=== PATIENT | female | born 1990 | race African-American/Black ===

== ENCOUNTER 2017-12-22 09:24 | Emergency (ER) | payer OTHER ==
[2017-12-22 09:30] VITALS: BP 129/61; PULSE 98; TEMP 98.2; BMI 78.9
[2017-12-22 10:01] LABS: HCG,QUALITATIVE URINE NEGATIVE
[2017-12-22 10:02] LABS: URINE APPEARANCE SLCLOUDY; URINE BILIRUBIN NEGATIVE (NEGATIVE); URINE BLOOD 3+ (NEGATIVE); URINE COLOR YELLOW; URINE GLUCOSE (UA) NEGATIVE (NEGATIVE); URINE KETONE NEGATIVE (NEGATIVE); URINE NITRITE NEGATIVE (NEGATIVE); URINE PROTEIN NEGATIVE (NEGATIVE)
[2017-12-22 10:12] LABS: URINE LEUK ESTERASE 3+ (NEGATIVE)
[2017-12-22 10:15] LABS: EPI CELLS RARE /HPF (FEW); URINE MUCUS FEW
--- NOTE | 2017-12-22 11:55 | PDOC ---
History of Present Illness - General Chief Complaint: Vaginal Sxs Stated Complaint: Wants STD testing Time Seen by Provider: 12/22/17 10:48 History Source: Patient Exam Limitations: No Limitations - History of Present Illness Initial Comments: 12/22/17 11:46 Patient is a 27-year-old female, denies any significant medical history was seen in [facility]OD BANK MANA[facility] last week for missed period, has an IUD was tested for gonorrhea Chlamydia and HIV all were negative has been feeling ill, no fever, chest and abdominal upset with no pain. Had vaginal spotting for the last 3 days, but no full flow. Is due for her period now. Past Medical History: [Denies]. Allergies: Crab, Kiwi and shrimp Medications: [None] Family History: Non-contributory Social History: Denies smoking, alcohol use, or IVDU Review of Systems GENERAL/CONSTITUTIONAL: [No fever or chills. No weakness. No weight change.] HEAD, EYES, EARS, NOSE AND THROAT: [No change in vision. No ear pain or discharge. No sore throat. ] CARDIOVASCULAR: [No chest pain or shortness of breath.] RESPIRATORY: [No cough, wheezing, or hemoptysis.] GASTROINTESTINAL: [No nausea, vomiting, diarrhea or constipation. No rectal bleeding.] GENITOURINARY: [No dysuria, frequency, or change in urination. Vaginal discharge and odor. Hernandez discharge. ] MUSCULOSKELETAL: [No joint or muscle swelling or pain. No neck or back pain.] SKIN AND BREASTS: [No rash or easy bruising.] NEUROLOGIC: [No headache, vertigo, loss of consciousness, or loss of sensation.] ENDOCRINE: [No increased thirst. No abnormal weight change.] HEMATOLOGIC/LYMPHATIC: [No anemia, easy bleeding, or history of blood clots.] ALLERGIC/IMMUNOLOGIC: [No hives or skin allergy. No latex allergy.] Physical Exam: GENERAL: [The patient is awake, alert, and fully oriented, in no acute distress. ] EYES: [Pupils equal, round and reactive to light, extraocular movements intact, sclera anicteric, conjunctiva clear.] ENT: [Ears normal, nares patent, oropharynx clear without exudates. Moist mucous membranes. No uvula deviation] NECK: [Normal range of motion, supple without lymphadenopathy, JVD, or masses.] LUNGS: [Breath sounds equal, clear to auscultation bilaterally. No wheezes, and no crackles.] HEART: [Regular rate and rhythm, normal S1 and S2 without murmur, rub or gallop. ] ABDOMEN: [Soft, nontender, normoactive bowel sounds. No guarding, no rebound. No masses. No bruising or abrasions] GENITALIA: Hernandez discharge, foul odor. Patient is uncomfortable with full examination unable to fully visualize cervical os MUSCULOSKELETAL: [Normal range of motion, no edema. No clubbing or cyanosis. No cords, erythema, or tenderness. No CVA Tenderness with fist palpation] NEUROLOGICAL: [Cranial nerves II through XII grossly intact. Normal speech, normal gait.] SKIN: [Warm, Dry, normal turgor, no rashes or lesions noted.] 12/22/17 12:28 Past History - Past Medical History Allergies/Adverse Reactions: Allergies Allergy/AdvReac Type Severity Reaction Status Date / Time crab AdvReac Itching Verified 12/22/17 09:30 kiwi AdvReac Itching Verified 12/22/17 09:30 shrimp AdvReac Itching Verified 12/22/17 09:30 Home Medications: Ambulatory Orders Nitrofurantoin Monohyd/M-Cryst [Macrobid -] 100 mg PO BID #14 capsule 12/22/17 metroNIDAZOLE 0.75% VAG. GEL [Metrogel 0.75% *Vaginal Gel* -] 1 applic VG HS #1 tube 12/22/17 Asthma: No Cancer: No Cardiac Disorders: No COPD: No Diabetes: No HTN: No Seizures: No Thyroid Disease: No - Reproductive History (#): 5 Para: 4 Therapeutic (s) & number: No - Suicide/Smoking/Psychosocial Hx Smoking History: Never smoked Have you smoked in the past 12 months: No Information on smoking cessation initiated: No Hx Alcohol Use: No Drug/Substance Use Hx: No Substance Use Type: None Hx Substance Use Treatment: No *Physical Exam - Vital Signs Last Vital Signs Temp Pulse Resp BP Pulse Ox 98.2 F 98 H 18 129/61 100 12/22/17 09:27 12/22/17 09:27 12/22/17 09:27 12/22/17 09:27 12/22/17 09:27 ED Treatment Course - ADDITIONAL ORDERS Additional order review: Laboratory Results 12/22/17 09:50 Urine Color Yellow Urine Appearance Slcloudy Urine pH 6.0 Ur Specific [place] 1.020 Urine Protein Negative Urine Glucose (UA) Negative Urine Ketones Negative Urine Blood 3+ H Urine Nitrite Negative Urine Bilirubin Negative Urine Urobilinogen 2.0 H Ur Leukocyte Esterase 3+ H D Urine WBC (Auto) 62 Urine RBC (Auto) 33 Ur Epithelial Cells Rare Urine Mucus Few Urine HCG, Qual Negative Medical Decision Making - Medical Decision Making 12/22/17 11:50 A/P: Patient here complaining of generalized "not feeling well" no fever, is concerned she has foul odor with urine, increase in urination, has an IUD in and has a history of urinary tract infections because of it. The same. Urinalysis, urine sent. Urine is negative Laboratory Results - last 24 hr 12/22/17 09:50 Urine Color Yellow Urine Appearance Slcloudy Urine pH 6.0 Ur Specific [place] 1.020 Urine Protein Negative Urine Glucose (UA) Negative Urine Ketones Negative Urine Blood 3+ H Urine Nitrite Negative Urine Bilirubin Negative Urine Urobilinogen 2.0 H Ur Leukocyte Esterase 3+ H D Urine WBC (Auto) 62 Urine RBC (Auto) 33 Ur Epithelial Cells Rare Urine Mucus Few Urine HCG, Qual Negative I'm going to discharge patient on Macrobid, vaginal examination performed and highly suspicious for BV vaginal culture sent We'll also discharge patient on Metrogel. I discussed the physical exam findings, ancillary test results and final diagnoses with the patient. I answered all of the patient's questions. The patient was satisfied with the care received and felt comfortable with the discharge plan and treatment plan. The patient will call to arrange follow-up and will return to the Emergency Department with any new, persistent or worsening symptoms. 12/22/17 12:29 *DC/Admit/Observation/Transfer Diagnosis at time of Disposition: Vaginal discharge UTI (urinary tract infection) Qualifiers: Urinary tract infection type: site unspecified Hematuria presence: without hematuria Qualified Code(s): N39.0 - Urinary tract infection, site not specified - Discharge Dispostion Disposition: HOME Condition at time of disposition: Stable Admit: No - Prescriptions Prescriptions: metroNIDAZOLE 0.75% VAG. GEL [Metrogel 0.75% *Vaginal Gel* -] 1 applic VG HS #1 tube Nitrofurantoin Monohyd/M-Cryst [Macrobid -] 100 mg PO BID #14 capsule - Referrals Referrals: [facility] [Provider Group] - Patient Instructions Additional Instructions: Please call [phone] in one week for results of culture and GC chlamydia testing Increase fluid intake, make sure to take probiotic or eat yogurt Refrain from sexual activity for at least 2 weeks Please follow-up with her BLOOD BANK MANAGER in 1 week if symptoms persist if any increased pain, fever, or any other concerns return to ER - Post Discharge Activity Forms/Work/School Notes: Back to Work
== END 2017-12-22 12:34 | disposition home or self-care (01) ==
LOC: JERFT 09:24
DX: N39.0 Urinary tract infection, site not specified (principal); Z97.5 Presence of (intrauterine) contraceptive device
CPT/HCPCS: 81003; 81015; 84703; 87070; 87086; 87205; 99281-25

== ENCOUNTER 2019-06-08 07:30 | Inpatient (IN) | payer OTHER ==
[2019-06-08 10:12] LABS: BASO % 0.4 % (0-2.0); EOS % 0.1 % (0-4.5); HEMATOCRIT 35.9 % (32.4-45.2); HEMOGLOBIN 11.9 GM/dL (10.7-15.3); LYMPH % 16.1 % (8-40); MCH 28.5 pg (25.7-33.7); MCHC 33.3 g/dl (32.0-36.0); MEAN CELL VOLUME 85.5 fl (80-96); MEAN PLT VOLUME 9.4 fl (7.5-11.1); MONO % 8.4 % (3.8-10.2); PLATELET COUNT 239 K/MM3 (134-434); RBC 4.19 M/mm3 (3.60-5.2); RDW 14.6 % (11.6-15.6); WHITE BLOOD COUNT 10.4 K/mm3 (4.0-10.0)
[2019-06-08 10:35] LABS: ALBUMIN 2.5 g/dl (3.4-5.0); BILIRUBIN,TOTAL 0.4 mg/dL (0.2-1); BLOOD UREA NITROGEN 7.5 mg/dL (7-18); CALCIUM 8.8 mg/dL (8.5-10.1); CREATININE 0.5 mg/dL (0.55-1.3); POTASSIUM 4.1 mmol/L (3.5-5.1); TOT PROT 6.7 g/dl (6.4-8.2); URIC ACID 4.1 mg/dL (2.6-7.2)
[2019-06-08 11:39] LABS: RATIO URIN PROTEIN/URIN CREAT 0.63 MG/DL
[2019-06-08 11:42] LABS: EPI CELLS 2.1 /HPF (0-5/HPF); HYALINE CASTS 2 /lpf (0-8); URINE APPEARANCE CLEAR; URINE BACTERIA 10.8 /hpf (NEGATIVE); URINE BILIRUBIN NEGATIVE (NEGATIVE); URINE COLOR YELLOW; URINE GLUCOSE (UA) NEGATIVE (NEGATIVE); URINE KETONE NEGATIVE (NEGATIVE); URINE LEUK ESTERASE NEGATIVE (NEGATIVE); URINE NITRITE NEGATIVE (NEGATIVE); URINE PROTEIN 2+ (NEGATIVE); URINE RBC 5 /hpf (0-4); URINE UROBILINOGEN 0.2 mg/dL (0.2-1.0); URINE WBC 1 /hpf (0-5)
--- NOTE | 2019-06-08 12:29 | HP ---
Past Medical History - Primary Care Physician PCP:: Ananda Hassan - Admission Chief Complaint: contractions History of Present Illness: Elevated BP. Patient denies LOF, VB, CP, SOB, N/V, no RUQ pain, no LE swelling History Source: Patient Limitations to Obtaining History: No Limitations - Past Medical History COOK MANAGER: No: Alzheimer's, CVA, Dementia, Migraine, Multiple Sclerosis, Peripheral Neuropathy, Parkinson's, Seizure, Syncope, TIA, Vertigo, Other Cardiovascular: No: AFIB, Aneurysm, Aortic Insufficiency, Aortic Stenosis, CAD, CHF, Deep Vein Thrombosis, HTN, Hyperlipdemia, OR, Mitral Insufficiency, Mitral Stenosis, Murmur, Pulmonary Hypertension, Other Pulmonary: No: Asthma, Bronchitis, Cancer, COPD, O2 Dependent, Pneumonia, Previously Intubated, Pulmonary Embolus, Pulmonary Fibrosis, Sleep Apnea, Other Gastrointestinal: No: Ascites, Cancer, Constipation, Crohn's Disease, Diverticulitis, Diverticulosis, Esophageal Varices, Gastritis, GERD, GI Bleed, Hemorrhoids, Hiatal Hernia, Inflamatory Bowel Disease, Irritable Bowel Disease, Pancreatitis, Peptic Ulcer Disease, Ulcerative Colitis, Other Hepatobiliary: No: Cirrhosis, Cholelithiasis, Cholecystitis, Choledocholithiasis , Hepatitis A, Hepatitis B, Hepatitis C, Other Renal/: No: Renal Failure, Renal Inusuff, BPH, Cancer, Hematuria, Hemodialysis , Neurogenic Bladder, Renal Calculi, UTI, Other ...: 8 ...Para: 4 ...Term: 4 ...: 0 ...Spon : 1 ...Induced : 2 ... Weeks Gestation by Dates: 39.4 ...EDC by Dates: 06/11/19 Heme/Onc: Yes: Anemia Musculoskeletal: No: Bursitis, Chronic low back pain, Hemiparesis, Hemiplegia, Osteoarthritis, Paraplegia, Other - Past Surgical History Past Surgical History: Yes: None Hx Myomectomy: No Hx Transabdominal Cerclage: No - Smoking History Smoking history: Never smoked Have you smoked in the past 12 months: No - Alcohol/Substance Use Hx Alcohol Use: No History of Substance Use: reports: None. denies: Cocaine, Heroin, Marijuana, Prescription, Tranquilizers - Social History History of Recent Travel: No Home Medications - Allergies Allergies/Adverse Reactions: Allergies Allergy/AdvReac Type Severity Reaction Status Date / Time crab AdvReac Itching Verified 06/08/19 08:22 kiwi AdvReac Itching Verified 06/08/19 08:22 pineapple AdvReac Itching Verified 06/08/19 08:22 shrimp AdvReac Itching Verified 06/08/19 08:22 - Home Medications Home Medications: Ambulatory Orders Pnv No.95/Ferrous Fum/Folic AC [ Vitamin Tablet] 1 each PO DAILY Family Disease History - Family Disease History Family Disease History: Heart Disease: Grandparent, [place]: Sister (breast), Other: Father (HTN) Review of Systems - Review of Systems Constitutional: reports: No Symptoms Eyes: reports: No Symptoms HENT: reports: No Symptoms Neck: reports: No Symptoms Cardiovascular: reports: No Symptoms Respiratory: reports: No Symptoms Gastrointestinal: reports: No Symptoms Genitourinary: reports: No Symptoms Breasts: reports: Other (deferred) Musculoskeletal: reports: No Symptoms Integumentary: reports: No Symptoms Neurological: reports: No Symptoms Endocrine: reports: No Symptoms Hematology/Lymphatic: reports: No Symptoms Psychiatric: reports: No Symptoms Physical Exam - Maternity Vital Signs: Vital Signs Temperature 98.2 F 06/08/19 08:28 Pulse Rate 74 06/08/19 10:30 Respiratory Rate 16 06/08/19 10:30 Blood Pressure 134/86 06/08/19 10:30 O2 Sat by Pulse Oximetry (%) Constitutional: Yes: No Distress HENT: Yes: Atraumatic, Normocephalic Neck: Yes: Supple Cardiovascular: Yes: Regular Rate and Rhythm Breast(s): Yes: Other (deferred) - Abdominal Exam/OB Number of Fetuses: Single Presentation: Vertex (bedside sono) Contractions: Yes Regularity: Regular Intensity: Moderate Monitor Mode: External Category: I Accelerations: Uniform Decelerations: None - Vaginal Exam/OB Vaginal Bleediing: No Dilatation (cm): 4 Effacement (%): 80 Station: -3 - Physical Exam Musculoskeletal: Yes: WNL Extremities: Yes: WNL Edema: LLE: Trace, RLE: Trace Integumentary: Yes: WNL Deep Tendon Reflex Grade: Normal +2 ...Motor Strength: WNL Psychiatric: Yes: Alert, Oriented - Labs Lab Results: CBC, BMP 06/08/19 09:57 06/08/19 09:28 Imaging - Results Ultrasound: Report Reviewed (sono at [facility] on march reviewed and consistent with CARMELITA of 06/11/19) Assessment/Plan 28 y/o P4 @ 39.4wks, external patient and partial chart available with no official sono reports. CARMELITA consistent with lat second trimester sono at [facility]. No Glucose test performed and FS on admission is 77. EFW by clinical examination is 3500g and cephalic presentation confirmed by bedside sono. Elevated BP aconsistent with gestational HTN vs PEC without severe features. Both diagnoses are indications for delivery after 37wks. -Admission -Expectant management -BP monitoring -Consider Augmentation of labor
[2019-06-08] MEDS ORDERED: AMPICILLIN - 2 GM in SODIUM CHLORIDE 100 ML IVPB ONE (12:30)
[2019-06-08] MEDS ORDERED: ELECTROLYTE-148 SOLN 1,000 ML IV SCH (12:30)
[2019-06-08 12:49] LABS: YEAST NONE SEEN (NEGATIVE)
[2019-06-08] MEDS ORDERED: AMPICILLIN SODIUM 2 GM VIAL ONE (13:05)
[2019-06-08] MEDS ORDERED: OXYTOCIN 20 UNITS in 0.9% NS 20 UNIT/1,000 ML INFUS.BAG IV ONE (13:40)
[2019-06-08] MEDS ORDERED: OXYTOCIN 20 UNITS in 0.9% NS 20 UNIT/1,000 ML INFUS.BAG IV SCH (14:15)
[2019-06-08] MEDS ORDERED: BISACODYL 10 MG SUPP.RECT RC PRN (14:15)
[2019-06-08] MEDS ORDERED: BENZOCAINE 20% 57 GM BOTTLE TP PRN (14:15)
[2019-06-08] MEDS ORDERED: BENZOCAINE 28 GM HEMORRHOIDAL OINTMENT TP PRN (14:15)
[2019-06-08] MEDS ORDERED: WITCH HAZEL 50% (TUCKS) 40 PAD/JAR PAD TP PRN (14:15)
[2019-06-08] MEDS ORDERED: MISOPROSTOL 100 MCG TABLET PV ONE (14:22)
--- NOTE | 2019-06-08 14:36 | PN ---
Delivery - Delivery Vaginal Delivery: Spontaneous (precipitous) Type of Anesthesia: None Episiotomy/Laceration: None EBL (cc): 200 Delivery, Single - Stages of Labor Placenta: Yes: Spontaneous - Condition of Infant Special Education Professor/Costume Shop Manager Present: No Infant Gender: Female Position: OA Remarks - Remarks Remarks: Infant delivered precipitously OA, no nuchal cord. Shoulders and rest of the body delivered without difficulty. Placenta delivered spontaneously and intact with 3VC. Exam revealed firm fundus, excellent hemostats and no lacerations. Misoprostol 100mcg CO administered prophylactically. sponge/instrument count corect x2.
[2019-06-08 14:40] VITALS: BMI 43.2
[2019-06-08] MEDS: ACETAMINOPHEN 325 MG TABLET (FP) PO PRN (16:13)
[2019-06-08] MEDS: IBUPROFEN 600 MG TABLET (FP) PO PRN (16:14)
[2019-06-08] MEDS ORDERED: AMPICILLIN - 1 GM in SODIUM CHLORIDE 100 ML IVPB SCH (16:30)
[2019-06-09] MEDS: IBUPROFEN 600 MG TABLET (FP) PO PRN (00:04)
[2019-06-09] MEDS: ACETAMINOPHEN 325 MG TABLET (FP) PO PRN (00:04)
--- NOTE | 2019-06-09 07:51 | PN ---
Post Progress Note - Subjective Subjective: ambulating, tolerating PO, lochia decreased, passing flatus Type of Delivery: Vital Signs: Vital Signs Temperature 98.0 F 06/09/19 06:00 Pulse Rate 69 06/09/19 06:00 Respiratory Rate 20 06/09/19 06:00 Blood Pressure 138/90 06/09/19 06:00 O2 Sat by Pulse Oximetry (%) Breast Exam: Yes: Other (deferred) Uterus: Yes: Fundus Firm Abdomen/GI: Yes: Abdomen soft Lochia, amount: Small Extremities: Yes: Calves non-tender Activity: Ambulating - Labs Labs: CBC WBC 10.4 K/mm3 (4.0-10.0) H 06/08/19 09:57 RBC 4.19 M/mm3 (3.60-5.2) 06/08/19 09:57 Hgb 11.9 GM/dL (10.7-15.3) 06/08/19 09:57 Hct 35.9 % (32.4-45.2) 06/08/19 09:57 MCV 85.5 fl (80-96) 06/08/19 09:57 MCH 28.5 pg (25.7-33.7) 06/08/19 09:57 MCHC 33.3 g/dl (32.0-36.0) 06/08/19 09:57 RDW 14.6 % (11.6-15.6) 06/08/19 09:57 Plt Count 239 K/MM3 (134-434) D 06/08/19 09:57 MPV 9.4 fl (7.5-11.1) D 06/08/19 09:57 Absolute Neuts (auto) 7.8 K/mm3 (1.5-8.0) 06/08/19 09:57 Neutrophils % 75.0 % (42.8-82.8) 06/08/19 09:57 Lymphocytes % 16.1 % (8-40) 06/08/19 09:57 Monocytes % 8.4 % (3.8-10.2) 06/08/19 09:57 Eosinophils % 0.1 % (0-4.5) 06/08/19 09:57 Basophils % 0.4 % (0-2.0) 06/08/19 09:57 Nucleated RBC % 0 % (0-0) 06/08/19 09:57 Assessment/Plan PPD # 1 in stable condition -Continue PP care -F/U CBC -Anticipate D/C home tomorrow
[2019-06-09 08:29] LABS: BASO % 0.3 % (0-2.0); EOS % 0.6 % (0-4.5); HEMATOCRIT 31.8 % (32.4-45.2); HEMOGLOBIN 10.6 GM/dL (10.7-15.3); LYMPH % 19.3 % (8-40); MCH 28.7 pg (25.7-33.7); MCHC 33.2 g/dl (32.0-36.0); MEAN CELL VOLUME 86.5 fl (80-96); MEAN PLT VOLUME 9.7 fl (7.5-11.1); MONO % 6.1 % (3.8-10.2); NEUT % 73.7 % (42.8-82.8); PLATELET COUNT 202 K/MM3 (134-434); RBC 3.68 M/mm3 (3.60-5.2); RDW 14.6 % (11.6-15.6)
[2019-06-09] MEDS ORDERED: SENNOSIDES/DOCUSATE COMBO (SENNA PLUS) TABLET (UD) PO PRN (22:00)
[2019-06-09] MEDS: LABETALOL HCL 200 MG TABLET (FP) PO PRN (23:10)
[2019-06-09] MEDS ORDERED: oxyCODONE HCL 5 MG TABLET PO ONE (23:15)
[2019-06-09] MEDS ORDERED: ACETAMINOPHEN 325 MG TABLET (FP) PO ONE (23:15)
[2019-06-10] MEDS: LABETALOL HCL 200 MG TABLET (FP) PO PRN (05:05)
--- NOTE | 2019-06-10 07:51 | DS ---
Physical Exam-WIRE LATHER Vital Signs: Vital Signs Temperature 98.0 F 06/09/19 22:50 Pulse Rate 95 H 06/10/19 05:05 Respiratory Rate 20 06/10/19 05:05 Blood Pressure 140/86 06/10/19 05:05 O2 Sat by Pulse Oximetry (%) Constitutional: Yes: Well Nourished, No Distress, Calm Eyes: Yes: WNL, Conjunctiva Clear, EOM Intact HENT: Yes: WNL, Atraumatic, Normocephalic Neck: Yes: WNL, Supple, Trachea Midline Cardiovascular: Yes: WNL, Regular Rate and Rhythm Respiratory: Yes: WNL, Regular, CTA Bilaterally Gastrointestinal: Yes: WNL ...Rectal Exam: Yes: WNL Renal/: Yes: WNL ....Post : Yes: Uterus firm, Uterus non-tender, Slight lochia rubra Breast(s): Yes: WNL Musculoskeletal: Yes: WNL Extremities: Yes: WNL Edema: No Integumentary: Yes: WNL Neurological: Yes: WNL, Alert, Oriented ...Motor Strength: WNL Psychiatric: Yes: WNL, Alert, Oriented Labs: CBC, BMP 06/09/19 07:15 06/08/19 09:28 Delivery - Delivery Vaginal Delivery: Spontaneous (precipitous) Type of Anesthesia: None Episiotomy/Laceration: None EBL (cc): 200 Delivery, Single - Stages of Labor Date 1st Stage Initiatied: 06/08/19 Time 1st Stage Initiated: 04:00 Date 2nd Stage Initiated: 06/08/19 Time 2nd Stage Initiated: 13:30 Date of Delivery: 06/08/19 Time of Delivery: 13:40 Time Placenta Delivered: 13:47 Placenta: Yes: Spontaneous - Condition of Infant Bakery Worker Conveyor Line/Erp Technical Lead Present: No Gender: Female Weight: 5 lb 3 oz Position: OA Total Hours ROM (Hrs/Mins): 0Hrs/5Mins - 1 Minute Total Score: 9 5 Minutes Total Score: 9 - Feeding Plan Initial Plan: Elected not to breastfeed exclusively throughout hospitalization Discharge Summary Reason For Visit: ADMISSION OF LABOR Procedures: Principal: Condition: Good - Instructions Diet, Activity, Other Instructions: regular diet , if fever ,pain, heavy vaginal bleeding call follow up [facility] 4 weeks Referrals: Ananda Hassan MD [Staff Physician] - Disposition: HOME - Home Medications Comprehensive Discharge Medication List: Ambulatory Orders Pnv No.95/Ferrous Fum/Folic AC [ Vitamin Tablet] 1 each PO DAILY Ibuprofen [Motrin -] 600 mg PO QID #28 tablet 06/09/19
[2019-06-10] MEDS: IBUPROFEN 600 MG TABLET (FP) PO PRN (08:11)
--- NOTE | 2019-06-10 08:29 | PN ---
Progress Note (short form) - Note Progress Note: ppd 2 s/p vaginal delivery had elevated bp last night, asymptomatic , no headache or blurred vision started on Labeatlol , no c/o this am CBC, BMP 06/09/19 07:15 06/08/19 09:28 Last Vital Signs Temp Pulse Resp BP Pulse Ox 98.0 F 95 H 20 140/86 06/09/19 22:50 06/10/19 05:05 06/10/19 05:05 06/10/19 05:05 abdomen soft, no distension, no RUQ tendernes uterus firm lochia mild 'no calf tenderness or edema impression transient HTN , r/o CHTN plan monitor BP if ok,can be d/c home with [facility]at [facility] 3 days if bp elevated will get renal consult
[2019-06-10 12:49] VITALS: BP 149/75; PULSE 78; TEMP 97.9
== END 2019-06-10 14:30 | disposition home or self-care (01) | DRG 560 ==
LOC: JDEL 07:30 → JLDR 12:10 → J3W 16:09
PROVIDERS: ADMIT Student in an Organized Health Care Education/Training Program; ATTEND Student in an Organized Health Care Education/Training Program
PROC: 10E0XZZ Delivery of Products of Conception, External Approach (ICD-10-PCS; principal; 2019-06-08)
DX: O16.5 Unspecified maternal hypertension, complicating the puerperium (principal); Z3A.39 39 weeks gestation of pregnancy; Z37.0 Single live birth
CPT/HCPCS: 36415; 80053; 81003; 82570; 83036; 83615; 84156; 84550; 85025; 86593; 86850; 86900; 86901

== ENCOUNTER 2020-10-01 09:40 | Inpatient (IN) | payer OTHER ==
[2020-10-01] MEDS ORDERED: AMPICILLIN - 2 GM in SODIUM CHLORIDE 100 ML IVPB ONE (10:04)
[2020-10-01] MEDS ORDERED: AMPICILLIN SODIUM 2 GM VIAL ONE (10:08)
[2020-10-01] MEDS ORDERED: OXYTOCIN 30 UNITS in 0.9% NS 30 UNIT/500 ML INFUS.BAG IVPB SCH (12:00)
[2020-10-01] MEDS ORDERED: OXYTOCIN 30 UNITS in 0.9% NS 30 UNIT/500 ML INFUS.BAG IVPB ONE (12:12)
[2020-10-01] MEDS ORDERED: ELECTROLYTE-148 SOLN 1,000 ML IV SCH (12:15)
[2020-10-01 12:57] VITALS: BMI 45.2
[2020-10-01 13:38] LABS: BASO % 0.2 % (0-2.0); EOS % 0.2 % (0-4.5); HEMOGLOBIN 11.8 GM/dL (10.7-15.3); LYMPH % 11.6 % (8-40); MCH 28.6 pg (25.7-33.7); MCHC 32.7 g/dl (32.0-36.0); MEAN CELL VOLUME 87.4 fl (80-96); MEAN PLT VOLUME 9.7 fl (7.5-11.1); MONO % 4.9 % (3.8-10.2); NEUT % 83.1 % (42.8-82.8); PLATELET COUNT 294 K/MM3 (134-434); RBC 4.11 M/mm3 (3.60-5.2); RDW 14.4 % (11.6-15.6); WHITE BLOOD COUNT 11.2 K/mm3 (4.0-10.0)
[2020-10-01 13:42] LABS: INR 0.97 (0.83-1.09); PROTHROMBIN TIME (PATIENT) 11.7 SEC (9.7-13.0)
[2020-10-01 13:44] LABS: ACTIVATED PTT 27.5 SECONDS (25.2-36.5)
[2020-10-01] MEDS ORDERED: AMPICILLIN SODIUM 1 GM VIAL ONE ×2 (13:45→18:03)
[2020-10-01 13:54] LABS: POTASSIUM 3.9 mmol/L (3.5-5.1)
[2020-10-01 13:57] LABS: BLOOD UREA NITROGEN 8.5 mg/dL (7-18); CALCIUM 8.4 mg/dL (8.5-10.1)
[2020-10-01 14:01] LABS: CREATININE 0.5 mg/dL (0.55-1.3)
[2020-10-01] MEDS: AMPICILLIN - 1 GM in SODIUM CHLORIDE 100 ML IVPB SCH ×2 (14:05→18:00)
[2020-10-01] MEDS ORDERED: FENTANYL/BUPIVACAINE/NS/PF - PCEA - 50 ML DISP.SYRIN EP ONE (14:22)
[2020-10-01 14:25] LABS: SYPHILIS W/ RPR CONF NON-REACTIVE (NONREACTIVE)
[2020-10-01 14:50] LABS: COCAINE, UR NEGATIVE ng/ml (CUTOFF=300); URINE AMPHETAMINES NEGATIVE ng/ml (CUTOFF=500); URINE BARBITURATES NEGATIVE ng/ml (CUTOFF=200); URINE BENZODIAZEPINES NEGATIVE ng/ml (CUTOFF=200)
[2020-10-01 14:52] LABS: METHADONE, UR NEGATIVE ng/ml (CUTOFF=300); OPIATES, URI NEGATIVE ng/ml (CUTOFF=300); PHENCYCLIDINE,URINE NEGATIVE ng/ml (CUTOFF=25)
[2020-10-01 14:53] LABS: HIV INTERPRETATION NEGATIVE (NEGATIVE)
[2020-10-01] MEDS ORDERED: NALOXONE HCL 0.4 MG/ML VIAL IVPUSH PRN (15:18)
[2020-10-01] MEDS ORDERED: OXYTOCIN 20 UNITS in 0.9% NS 20 UNIT/1,000 ML INFUS.BAG IV ONE ×2 (15:22→20:37)
[2020-10-01] MEDS ORDERED: FENTANYL/BUPIVACAINE/NS/PF - PCEA - 50 ML DISP.SYRIN EP SCH (15:30)
[2020-10-01] MEDS ORDERED: METHYLERGONOVINE MALEATE 0.2 MG/1 ML AMP IM PRN ×2 (18:45→18:47)
[2020-10-01] MEDS ORDERED: BENZOCAINE 20% 57 GM BOTTLE TP PRN (18:47)
[2020-10-01] MEDS ORDERED: BISACODYL 10 MG SUPP.RECT RC PRN (18:47)
[2020-10-01] MEDS ORDERED: WITCH HAZEL 50% (TUCKS) 40 PAD/JAR PAD TP PRN (18:47)
[2020-10-01] MEDS ORDERED: BENZOCAINE 28 GM HEMORRHOIDAL OINTMENT TP PRN (18:47)
[2020-10-01] MEDS ORDERED: OXYTOCIN 20 UNITS in 0.9% NS 20 UNIT/1,000 ML INFUS.BAG IV SCH (19:00)
[2020-10-01 19:49] LABS: CORD BASE EXCESS -1.9 mmol/L (0-2); CORD HCO3 23.5 mmHg (20-29); CORD PCO2 42.2 mmHg (30-78); CORD pH 7.363 (7.14-7.44)
[2020-10-01 20:03] LABS: CORD BASE EXCESS -3.3 mmol/L (0-2); CORD PCO2 40.4 mmHg (30-78); CORD pH 7.354 (7.14-7.44)
[2020-10-02] MEDS: IBUPROFEN 600 MG TABLET (FP) PO PRN ×3 (01:13→17:53)
[2020-10-02] MEDS: ACETAMINOPHEN 325 MG TABLET (FP) PO PRN ×3 (01:14→17:53)
[2020-10-02] MEDS: PRENATAL VITAMINS W/ FOLIC ACID TABLET (FP) PO SCH (09:33)
[2020-10-02] MEDS: FERROUS SO4 325 MG TABLET (FP) PO SCH ×2 (09:33→17:53)
[2020-10-02 11:54] LABS: BASO % 0.3 % (0-2.0); EOS % 0.5 % (0-4.5); HEMATOCRIT 33.7 % (32.4-45.2); HEMOGLOBIN 11.1 GM/dL (10.7-15.3); LYMPH % 12.6 % (8-40); MCHC 33.1 g/dl (32.0-36.0); MEAN CELL VOLUME 87.6 fl (80-96); MEAN PLT VOLUME 8.7 fl (7.5-11.1); MONO % 5.5 % (3.8-10.2); NEUT % 81.1 % (42.8-82.8); PLATELET COUNT 246 K/MM3 (134-434); RBC 3.85 M/mm3 (3.60-5.2); RDW 14.4 % (11.6-15.6); WHITE BLOOD COUNT 12.9 K/mm3 (4.0-10.0)
[2020-10-02] MEDS ORDERED: SENNOSIDES/DOCUSATE COMBO (SENNA PLUS) TABLET (UD) PO PRN (22:00)
[2020-10-03] MEDS: IBUPROFEN 600 MG TABLET (FP) PO PRN (02:52)
[2020-10-03] MEDS: ACETAMINOPHEN 325 MG TABLET (FP) PO PRN (02:53)
[2020-10-03] MEDS: FERROUS SO4 325 MG TABLET (FP) PO SCH (09:03)
[2020-10-03] MEDS: PRENATAL VITAMINS W/ FOLIC ACID TABLET (FP) PO SCH (09:13)
[2020-10-03 10:33] VITALS: BP 139/80; PULSE 88; TEMP 97.3
[2020-10-03 21:10] LABS: HEP B CORE AB, TOT Negative (Negative)
== END 2020-10-03 15:25 | disposition home or self-care (01) | DRG 560 ==
LOC: JLDR 09:40 → J3W 21:00
PROVIDERS: ADMIT Family Medicine; ATTEND Family Medicine
PROC: 10E0XZZ Delivery of Products of Conception, External Approach (ICD-10-PCS; principal; 2020-10-01)
PROC: 0HQ9XZZ Repair Perineum Skin, External Approach (ICD-10-PCS; 2020-10-01)
PROC: 0W8NXZZ Division of Female Perineum, External Approach (ICD-10-PCS; 2020-10-01)
DX: O70.0 First degree perineal laceration during delivery (principal); Z3A.40 40 weeks gestation of pregnancy; Z37.0 Single live birth
CPT/HCPCS: 36415; 36600; 59409; 80048; 80307; 82803; 85025; 85610; 85730; 86704; 86705; 86706; 86707; 86780; 86850; 86900; 86901; 87389; C9803; U0003